=== PATIENT | male | born 1970 | race Caucasian/White ===

== ENCOUNTER 2020-04-16 18:37 | Emergency (ER) | payer MEDICAID ==
[~2020-04-16] VITALS: Ht 162.6 cm; Wt 64.0 kg
[~2020-04-16 18:37] MED LIST: KEPP500 PO
[2020-04-16 18:41] VITALS: BP 102/68
== END 2020-04-17 01:15 | disposition left against medical advice (07) ==
LOC: ER 18:37
DX: Z53.21 Procedure and treatment not carried out due to patient leaving prior to being seen by health care provider (principal)

== ENCOUNTER 2023-02-05 11:47 | Emergency (ER) | payer MEDICAID ==
[~2023-02-05] VITALS: Ht 165.1 cm; Wt 72.7 kg
[2023-02-05 12:16] VITALS: TEMP 98; O2SAT 99
[2023-02-05 13:45] VITALS: BP 121/71; PULSE 78; RESP 16
[2023-02-05] MEDS ORDERED: KETOROLAC 30MG/ML VIAL IM ONE (13:45)
[2023-02-05] MEDS ORDERED: IBUP-2029 MT (15:53)
[2023-02-05] MEDS ORDERED: LEVO750T68 MT (15:53)
[2023-02-05] MEDS ORDERED: CEFTRIAXONE SODIUM 500 MG/VIAL IM ONE (16:00)
== END 2023-02-05 16:20 | disposition home or self-care (01) ==
LOC: ER 11:47
DX: N45.1 Epididymitis (principal)
CPT/HCPCS: 99285; 93976; 76870; 96372; J0696; J1885